=== PATIENT | female | born 1975 | race Caucasian/White ===

== ENCOUNTER → 2024-02-18 09:02 | Outpatient (REF) | payer BC, SELFPAY | LOC: HWRAD 09:02 | PROVIDERS: ATTENDING PHYSICIAN Nurse Practitioner Family; FAMILY PHYSICIAN Family Medicine | DX: N92.0 Excessive and frequent menstruation with regular cycle (principal) | CPT/HCPCS: 76830; 76856 ==

== ENCOUNTER 2024-05-19 14:50 | Emergency (ER) | payer BC, SELFPAY ==
--- NOTE | 2024-05-19 14:55 | ED.GENMED ---
ED Provider Triage
<Ana Casanova PA-C - Last Filed: 05/19/24 18:07>
-
Patient seen by provider in Triage?: Seen in Triage
Attestation: A medical screening examination has been initiated by a qualified medical provider. Based on the assessment performed at this time, it has been determined that an emergent medical condition may exist and the patient has been informed
that further medical evaluation and possible additional diagnostic testing may be needed.
HPI: 48yoF here with palpitations. Feels like heart is racing. Also having tightness across chest and back. Tingling in bilateral hands. Stopped all medications a few months ago (sertraline, statin).
GENERAL: Alert , in no apparent distress
EYE: No visual abnormalities.
NECK: Trachea midline
ENT: No visible abnormalities.
LUNGS: No acute respiratory distress
NEUROLOGICAL: Alert and oriented
SKIN: Skin intact. No visible changes.
MUSCULOSKELETAL: Moving extremities normally
PSYCH: Normal and appropriate interaction.
This is a medical evaluation conducted in person to initiate diagnostic evaluation and provide initial therapeutics. Please see further documentation by the treating clinician.
Cardiac labs, magnesium, TSH, EKG, and CXR ordered.
History of Present Illness
<Ana Casanova PA-C - Last Filed: 05/19/24 18:07>
General
Chief Complaint: Cardiac Symptoms
Time Seen by Provider: 05/19/24 16:49
<Andrey Jiménez MD - Last Filed: 05/19/24 17:57>
General
Source: patient
Exam Limitations: none
Nursing documentation reviewed up to this point in time: agreed with
History of Present Illness
History of Present Illness:
48-year-old female with past medical history of hyperlipidemia, anxiety who presents to the emergency department for evaluation of chest pain and palpitations. Patient reports onset of symptoms yesterday and they were constant throughout the day
yesterday�she reports dull pressure sensation across her chest that radiated towards her back. She says she had associated palpitations. She says that she went to bed early last night because she was also feeling very fatigued. She says she woke
up this morning and felt a bit better but as the morning went on she was once again feeling some chest discomfort and racing heart and came to the emergency room to be assessed. She says that since arrival in the emergency room her symptoms have
completely resolved and she feels much better. She has not had any recent cough, fevers, chills. She has not had any nausea, vomiting, abdominal pain. She has not noticed any swelling or pain in the legs. She says she has had issues with anxiety
in the past but never symptoms consistent like this. She denies any known history of heart problems or family history of heart problems. She denies any history of DVT/PE. Denies any recent travel or exogenous estrogen. She is supposed to be on
SSRI and statin but says that she has not been taking these for the past few months.
Review of Systems
<Andrey Jiménez MD - Last Filed: 05/19/24 17:57>
Review of Systems
All Other Systems: ROS reviewed and negative except as documented in HPI and ROS
Constitutional: Denies fever or chills
EENT: Denies sore throat or runny nose
Respiratory: Denies trouble breathing
Cardiac: Reports chest pain and palpitations; Denies syncope
ABD/GI: Denies abdominal pain, nausea, vomiting or diarrhea
: Denies flank pain
Musculoskeletal: Denies neck pain or back pain
Neurological: Denies dizzy or headache
Phy Exam
<Andrey Jiménez MD - Last Filed: 05/19/24 17:57>
Physical Exam
Physical Exam:
General: Awake, alert, oriented x3; no acute distress
Head: Normocephalic, atraumatic
Eyes: Conjunctiva normal, sclera anicteric
Throat: Airway intact, handling secretions
Neck: Trachea midline, supple without meningismus
Lungs: Clear to auscultation bilaterally, no wheezing, rales, rhonchi
Heart: Regular rate and rhythm, no murmurs, gallops, or rubs
Abd: Soft, non distended, nontender
Neuro: No gross deficits
Skin: no rash
Extremities: No edema in extremities, equal pulses in all extremities, no calf tenderness
Scores
<Ana Casanova PA-C - Last Filed: 05/19/24 18:07>
Heart Score for Chest Pain Patients
Heart Score for Chest Pain Patients: 2
Heart Score Risk: 2.5% MACE over next 6 weeks
<Andrey Jiménez MD - Last Filed: 05/19/24 17:57>
Heart Failure Risk
Heart Failure Risk Score: Not Applicable
Heart Score for Chest Pain Patients
STEMI patient?: No
History: Slightly or Non-Suspicious
ECG: Normal
Age: >45 - <65 years
Risk Factors: 1 or 2 Risk Factors
Troponin: </= Normal Limit
Heart Score for Chest Pain Patients: 2
Heart Score Risk: 2.5% MACE over next 6 weeks
Withdrawal Assessment of Alcohol
Withdrawal Assessment Completed?: Not applicable
Course
<Ana Casanova PA-C - Last Filed: 05/19/24 18:07>
Orders/Labs/Results
Orders:
Orders
05/19/24 14:51
ECG [Electrocardiogram (*1)] Urgent
Reason for Study: Palpitations
EKG- Treatment ONCE
05/19/24 14:58
Test Result ONCE
CR Chest - 2 Views Urgent
Comment:
Reason For Exam: CP
05/19/24 15:05
Complete Blood Count/With Diff Urgent
Comprehensive Metabolic Panel Urgent
HCG, Serum Qualitative Screen Urgent
Magnesium Urgent
TSH Reflex To Free T4 Urgent
Troponin I Urgent
05/19/24 17:34
D-Dimer Urgent
Troponin I Urgent
Abnormal Lab Results
05/19/24
15:05
MCHC 32.6 L g/dL
(33.0-37.0)
Absolute Neuts (auto) 7.4 H 10^3/uL
(1.4-6.5)
05/19/24 15:05
05/19/24 15:05
Vital Signs
Initial and Last Documented VS:
Initial Vital Signs
Temp Pulse Resp BP Pulse Ox
98.1 F 89 18 167/89 98
05/19/24 14:56 05/19/24 14:56 05/19/24 14:56 05/19/24 14:56 05/19/24 14:56
Last Documented Vital Signs
Temp Pulse Resp BP Pulse Ox
98.1 F 91 24 124/70 96
05/19/24 14:56 05/19/24 17:00 05/19/24 17:00 05/19/24 17:00 05/19/24 17:03
<Andrey Jiménez MD - Last Filed: 05/19/24 17:57>
Orders/Labs/Results
Orders:
Orders
05/19/24 14:51
ECG [Electrocardiogram (*1)] Urgent
Reason for Study: Palpitations
EKG- Treatment ONCE
05/19/24 14:58
Test Result ONCE
CR Chest - 2 Views Urgent
Comment:
Reason For Exam: CP
05/19/24 15:05
Complete Blood Count/With Diff Urgent
Comprehensive Metabolic Panel Urgent
HCG, Serum Qualitative Screen Urgent
Magnesium Urgent
TSH Reflex To Free T4 Urgent
Troponin I Urgent
05/19/24 17:34
D-Dimer Urgent
Troponin I Urgent
Abnormal Lab Results
05/19/24
15:05
MCHC 32.6 L g/dL
(33.0-37.0)
Absolute Neuts (auto) 7.4 H 10^3/uL
(1.4-6.5)
05/19/24 15:05
05/19/24 15:05
Vital Signs
Initial and Last Documented VS:
Initial Vital Signs
Temp Pulse Resp BP Pulse Ox
98.1 F 89 18 167/89 98
05/19/24 14:56 05/19/24 14:56 05/19/24 14:56 05/19/24 14:56 05/19/24 14:56
Last Documented Vital Signs
Temp Pulse Resp BP Pulse Ox
98.1 F 91 24 124/70 96
05/19/24 14:56 05/19/24 17:00 05/19/24 17:00 05/19/24 17:00 05/19/24 17:03
<Andrey Jiménez MD - Last Filed: 05/19/24 17:57>
MDM/Problems Addressed
Differential Diagnosis Includes:
Dysrhythmia, pericarditis, ACS, GERD, costochondritis, PE, anxiety
MDM/Problems Addressed:
48-year-old female presents for evaluation of chest discomfort and palpitations over the past 24 hours�had been essentially constant but resolved shortly after arrival in ER here. She did have some hypertension on arrival but vital signs have
normalized by my assessment. Heart rate in the 80s. Physical exam as above. EKG shows sinus rhythm with a rate of 81, normal axis, normal intervals, no acute ischemia, normal QTc, no Brugada, no delta wave. She had labs sent in triage including
CBC and a CMP which showed no clinically significant abnormalities. She had a troponin which was undetectable. TSH normal. Will repeat troponin and send D-dimer. Obtain a chest x-ray. Reassess at the above.
Chronic conditions affecting care:
Anxiety
Acute Exacerbation and/or Progression of Chronic Illness:
Acute hypertension resolved without intervention continue to monitor but no emergent antihypertensives indicated at present
Acute Exacerbation and/or Progression of Chronic Illness: HTN
<Andrey Jiménez MD - Last Filed: 05/19/24 17:57>
*Radiology
Radiology exam reviewed: preliminary read by ED provider and radiology read reviewed
*Pulse Oximetry
Patient hypoxic: no
*EKG
Interpreted by ED Provider?: Yes
Heart Rate: 81
Rate: normal
Rhythm: sinus
Stanton: normal axis
Interval: normal interval
QRS Pattern: normal QRS
Ischemia: no ischemia
*Critical Care Note
Total Time (30-74mins, 75-104mins- exclusive of procedures): Not Applicable
Data Reviewed
Source: patient and spouse
ED Attending Note
<Ana Casanova PA-C - Last Filed: 05/19/24 18:07>
-
Portions of this chart may have been created with voice recognition software.� Occasional wrong word or��sound alike� substitutions may have occurred due to the inherent limitations of voice recognition software.
Discharge Plan
Departure
Prescriptions:
No Action
prenat.vits,jenny,[id number] [ Vitamin] 1 TAB tablet
1 tab PO
Amoxil
Referrals:
Sury Williamson, DO [Family Provider] -
Interventions
Interventions:
*Risk Screen - Suicide Last Done: 05/19/24 14:56
*General Assessment Last Done: 05/19/24 14:56
*Neglect/Abuse Screening Last Done: 05/19/24 14:56
ED- Fall Risk Assessment Last Done: 05/19/24 17:03
*ED COVID-19 Vaccine History Last Done: 05/19/24 14:56
ED- Pulmonary Assessment Last Done: 05/19/24 17:03
ED- Cardiac Assessment Last Done: 05/19/24 17:03
Discharge Date and Time
Print Language: LATVIAN
[2024-05-19 14:56] VITALS: BP 167/89
[2024-05-19 15:14] LABS: % Basophils 0.3 % (0-2); % Eosinophils 1.2 % (0-6); % Immature Granulocytes 0.2 % (0-0.5); % Lymphocytes 21.1 % (20.5-51.1); % Monocytes 4.3 % (1.7-9.3); % Neutrophils 72.9 % (42.2-75.2); Absolute Eosinophils 0.1 10^3/uL (0-0.7); Absolute Lymphocytes 2.1 10^3/uL (1.2-3.4); Absolute Monocytes 0.4 10^3/uL (0.1-0.6); Absolute Neutrophils 7.4 10^3/uL (1.4-6.5); Hemoglobin 12.4 g/dL (12.0-16.0); Mean Corp Hgb Conc. 32.6 g/dL (33.0-37.0); Mean Corpuscular Hgb 27.4 pg (27.0-31.0); Mean Corpuscular Volume 84.1 fL (81.0-99.0); Mean Platelet Volume 9.5 fL (7.4-10.4); Nucleated Red Blood Cells % 0 %; Platelet Count 371 10^3/uL (130-400); Red Blood Cell Count 4.52 10^6/uL (4.20-5.40); Red Cell Dist. Width 13.2 % (11.5-14.5); White Blood Cell Count 10.1 10^3/uL (4.8-10.8)
[2024-05-19 15:36] LABS: HCG, Serum Qualitative Screen Negative
[2024-05-19 15:40] LABS: ALT (SGPT) 16 U/L (0-35); AST (SGOT) 21 U/L (14-36); Albumin 4.7 g/dl (3.5-5.0); Alkaline Phosphatase 72 U/L (38-126); Blood Urea Nitrogen 11 mg/dl (7-17); Calcium 9.6 mg/dl (8.4-10.2); Carbon Dioxide 26 mmol/L (22-30); Chloride 103 mmol/L (98-107); Glucose 90 mg/dl (70-99); Magnesium 1.9 mg/dl (1.6-2.3); Potassium 4.2 mmol/L (3.5-5.1); Sodium 142 mmol/L (135-145); Total Bilirubin 0.4 mg/dl (0.2-1.3); Total Protein 7.5 g/dl (6.3-8.2); eGFR > 60.00
[2024-05-19 15:45] LABS: Troponin I < 0.012 ng/ml
[2024-05-19 16:05] LABS: TSH Reflex To Free T4 1.75 uIU/ml (0.47-4.68)
[2024-05-19 17:00] VITALS: BP 124/70
[2024-05-19 18:00] VITALS: BP 128/80
[2024-05-19 18:30] LABS: D-Dimer 0.29 ug/mlFEU (0.00-0.50)
[2024-05-19 18:45] LABS: Troponin I < 0.012 ng/ml
== END 2024-05-19 19:25 | disposition home or self-care (01) ==
LOC: EMR 14:50
PROVIDERS: Physician Assistant; EMERGENCY PHYSICIAN Emergency Medicine; FAMILY PHYSICIAN Family Medicine
DX: R07.89 Other chest pain (principal); R00.2 Palpitations; E78.00 Pure hypercholesterolemia, unspecified; F41.9 Anxiety disorder, unspecified
CPT/HCPCS: 99283; 71046; 80053; 83735; 84443; 84484; 84703; 85025; 85379; 93005

== ENCOUNTER → 2024-07-01 10:13 | Outpatient (REF) | payer BC, SELFPAY | LOC: HWRCS 10:13 | PROVIDERS: ATTENDING PHYSICIAN Internal Medicine Interventional Cardiology; FAMILY PHYSICIAN Family Medicine | DX: R00.2 Palpitations (principal); R06.02 Shortness of breath; R07.89 Other chest pain | CPT/HCPCS: 93306 ==

== ENCOUNTER 2024-08-07 06:28 | Day surgery (SDC) | payer BC, SELFPAY ==
[2024-07-10 08:59] LABS: % Basophils 0.4 % (0-2); % Eosinophils 2.6 % (0-6); % Immature Granulocytes 0.4 % (0-0.5); % Lymphocytes 24.6 % (20.5-51.1); % Monocytes 4.9 % (1.7-9.3); % Neutrophils 67.1 % (42.2-75.2); Absolute Eosinophils 0.2 10^3/uL (0-0.7); Absolute Lymphocytes 2.1 10^3/uL (1.2-3.4); Absolute Monocytes 0.4 10^3/uL (0.1-0.6); Absolute Neutrophils 5.7 10^3/uL (1.4-6.5); Hematocrit 36.3 % (37.0-47.0); Hemoglobin 11.6 g/dL (12.0-16.0); INR 1.09; Mean Corpuscular Hgb 27.4 pg (27.0-31.0); Mean Corpuscular Volume 85.8 fL (81.0-99.0); Mean Platelet Volume 10.2 fL (7.4-10.4); Nucleated Red Blood Cells % 0 %; PT 14.4 Sec (11.4-14.6); Platelet Count 289 10^3/uL (130-400); Red Blood Cell Count 4.23 10^6/uL (4.20-5.40); Red Cell Dist. Width 13.6 % (11.5-14.5); White Blood Cell Count 8.5 10^3/uL (4.8-10.8)
[2024-07-10 09:04] LABS: Blood Urea Nitrogen 10 mg/dl (7-17); Calcium 9.2 mg/dl (8.4-10.2); Carbon Dioxide 26 mmol/L (22-30); Chloride 107 mmol/L (98-107); Glucose 87 mg/dl (70-99); Potassium 4.1 mmol/L (3.5-5.1); Sodium 142 mmol/L (135-145); eGFR > 60.00
[2024-07-10 09:18] LABS: Beta HCG Quantitative < 2.39 mIU/ml
[2024-07-10 13:48] VITALS: BMI 46.0
[2024-08-07] VITALS (8 sets, daily range): BP systolic 101–120; BP diastolic 65–75; BMI 46.0
[2024-08-07] MEDS: TYLENOL 1000 MG PO (07:56)
[2024-08-07] MEDS: NORMOSOL-R/PLASMALYTE-A 1000 IV (08:22)
--- NOTE | 2024-08-07 08:39 | PTCARENOTE ---
Knee high SCD put on patient per MD order, (Dr. Mireles).
--- NOTE | 2024-08-07 08:59 | W.IMMPOSTOP ---
Surgical Immed Post Op Note
-
Primary Surgeon: Sury Black DO
Assisting Surgeon: none
Pre-op Diagnosis: Menorrhagia, thickened endometrium on ultrasound
Post-op Diagnosis: same
Procedure Performed:Hysteroscopy D&C
Anesthesia Type: general LMA Dr. Montes
Specimen / Cultures: 1. endocervical curettings 2. endometrial curettings
Estimated Blood Loss: 5ml
fluid deficit 250ml NSS
Complications: none
Operative Findings: Uterus sounded to 10 cm; papillary appearing endocervical polypoid lesion; endometrial cavity with moderate thickened lining but no evidence of mass; bilateral tubal ostia visualized.
Counts correct times 2.
Stable to recovery
[2024-08-07] MEDS: DILAUDID 0.5 MG IV (09:27)
== END 2024-08-07 10:55 | disposition home or self-care (01) ==
LOC: SDS 06:28
PROVIDERS: ATTENDING PHYSICIAN Obstetrics & Gynecology; FAMILY PHYSICIAN Family Medicine
DX: N84.1 Polyp of cervix uteri (principal); N92.0 Excessive and frequent menstruation with regular cycle; R93.89 Abnormal findings on diagnostic imaging of other specified body structures
CPT/HCPCS: 58558; 88305; 36415; 80048; 84702; 85025; 85610; 86850; 86900; 86901

== ENCOUNTER → 2024-09-22 07:54 | Outpatient (REF) | payer BC, SELFPAY | LOC: RCS 07:54 | PROVIDERS: ATTENDING PHYSICIAN Physician Assistant; FAMILY PHYSICIAN Family Medicine | DX: R00.2 Palpitations (principal); R06.02 Shortness of breath; R07.89 Other chest pain; E78.2 Mixed hyperlipidemia | CPT/HCPCS: 93017 ==

== ENCOUNTER → 2025-05-29 10:04 | Outpatient (REF) | payer BC, SELFPAY | LOC: RAD 10:04 | DX: S76.112A Strain of left quadriceps muscle, fascia and tendon, initial encounter (principal); M25.552 Pain in left hip | CPT/HCPCS: 73502 ==